=== PATIENT | male | born 1990 | race African-American/Black ===

== ENCOUNTER 2019-07-14 20:41 | Emergency (ER) | payer SELFPAY ==
[~2019-07-14] VITALS: Ht 175.3 cm; Wt 68.2 kg
[2019-07-14 20:54] VITALS: Ht 175.3 cm; Wt 68.2 kg
[2019-07-14 22:12] LABS: BACTERIA FEW /hpf (NEGATIVE); BILIRUBIN NEGATIVE (NEGATIVE); GLUCOSE NEGATIVE (NEGATIVE); KETONE NEGATIVE (NEGATIVE); NITRITE NEGATIVE (NEGATIVE); RED CELLS - URINE 0-5 /hpf (0-5); SPECIFIC GRAVITY 1.015 (1.005-1.020); UROBILINOGEN NORMAL (NORMAL); WHITE CELLS - URINE OCC /hpf (NEGATIVE)
[2019-07-14] MEDS ORDERED: TORADOL10 MG PO (22:13)
[2019-07-14 22:35] VITALS: BP 122/76
== END 2019-07-14 22:35 | disposition home or self-care (01) ==
LOC: D.ER 20:41
PROVIDERS: Family Medicine
DX: A74.9 Chlamydial infection, unspecified (principal); M94.0 Chondrocostal junction syndrome [Tietze]; R07.89 Other chest pain

== ENCOUNTER 2019-07-27 00:42 | Emergency (ER) | payer SELFPAY ==
[~2019-07-27] VITALS: Ht 175.3 cm; Wt 68.2 kg
[~2019-07-27 00:42] MED LIST: TORADOL10 MG PO
[2019-07-27 01:05] VITALS: Ht 175.3 cm; Wt 68.2 kg
[2019-07-27 01:42] LABS: BILIRUBIN NEGATIVE (NEGATIVE); GLUCOSE NEGATIVE (NEGATIVE); KETONE NEGATIVE (NEGATIVE); NITRITE NEGATIVE (NEGATIVE); UROBILINOGEN NORMAL (NORMAL)
[2019-07-27 01:45] LABS: BACTERIA FEW /hpf (NEGATIVE); EPITHELIAL CELLS 0-5 /hpf (0-5); RED CELLS - URINE 0-5 /hpf (0-5); WHITE CELLS - URINE 0-5 /hpf (NEGATIVE)
[2019-07-27 02:55] VITALS: BP 125/78
== END 2019-07-27 02:56 | disposition home or self-care (01) ==
LOC: D.ER 00:42
PROVIDERS: Family Medicine
DX: N50.82 Scrotal pain (principal)

== ENCOUNTER 2020-05-13 19:28 | Emergency (ER) | payer SELFPAY ==
[~2020-05-13] VITALS: Ht 175.3 cm; Wt 68.2 kg
[~2020-05-13 19:28] MED LIST changes: +OMNICEF300 MG PO; +VIBRAMYCIN 100100 MG PO
[2020-05-13 19:32] VITALS: BP 117/72; Ht 175.3 cm; Wt 68.2 kg
== END 2020-05-13 20:35 | disposition home or self-care (01) ==
LOC: D.ER 19:28
DX: B07.9 Viral wart, unspecified (principal)